=== PATIENT | male | born 1975 | race Caucasian/White ===

== ENCOUNTER → 2017-05-06 | Outpatient (CLI) | payer BC ==
--- NOTE | ~2017-05-06 | US77 ---
[facility] A Service of [facility] & [facility] RADIOLOGY TEXT RESULTS PATIENT: JERRY CASTELLANOS LOCATION: [facility] : 75 UNIT #: [id number] AGE: [address]: Suzy Garcia MD SEX: M ORDER DR: [id number] [facility] [address] [place], [place] [address] [id number] O MR#: [id number] Acc #: [id number] NAME: JERRY CASTELLANOS : 1975 SEX: M STUDY DATE/TIME: 05/06/2017 12:15 UNIT: [facility] ROOM: STUDY DESCRIPTION: US Kidney Bilateral Complete Attending Physician: Suzy Garcia M.D. Referring Physician: Suzy Garcia M.D. Ordering Physician: Suzy Garcia M.D. Primary Care Physician: Suzy Garcia M.D. MEDICAL IMAGING REPORT This report is preliminary unless electronic signature is present EXAM Renal ultrasound, 05/06/2017. HISTORY Acute renal insufficiency, abnormal renal function tests. Elevated creatinine 1.4. Abnormally low GFR 59 on 04/30/2017. Hypertension. FINDINGS The right kidney measures 10.9 cm while the left kidney measures 11.7 cm in longitudinal dimensions. There is no evidence of hydronephrosis or nephrolithiasis. No cystic or solid mass lesions were seen on either kidney. There is normal renal cortical echogenicity. Images of the bladder are normal. Incidental note is made of fatty infiltration of the liver. IMPRESSION 1. Negative renal ultrasound. 2. Images of the bladder are normal. 3. Fatty infiltration of the liver. Dictated by... Elliott Cazares M.D. THIS IS AN ELECTRONICALLY VERIFIED REPORT Elliott Cazares M.D. at 05/07/2017 2:37 PM ISABEL/bridger TD: 05/06/2017 23:11 JOB #: [id number] MEDICAL IMAGING REPORT Page 1 of 1 COPY
== END | disposition home or self-care (01) ==
LOC: CGUS 11:51
DX: N28.9 Disorder of kidney and ureter, unspecified (principal); K76.0 Fatty (change of) liver, not elsewhere classified
CPT/HCPCS: 76770